=== PATIENT | male | born 1935 | race Caucasian/White ===

== ENCOUNTER 2020-06-14 14:33 | Emergency (ER) | payer MEDICARE, OTHER ==
[~2020-06-14] VITALS: Ht 165.1 cm; Wt 95.2 kg
[~2020-06-14 14:33] MED LIST: ASCO500; CLOP75; GABA300; GLUC500; HYDACE25S PR; HYDR1TAB94; LEVSOD50; METO50ER; PANT40; ZOLP10
[2020-06-14 15:22] LABS: BASOPHILS ABSOLUTE AUTO 0.02 K/mm3 (0.00-0.23); BASOPHILS PERCENT AUTO 0 % (0-2); EOSINOPHILS ABSOLUTE AUTO 0.24 K/mm3 (0.00-0.68); EOSINOPHILS PERCENT AUTO 4 % (0-6); Hematocrit 48.5 % (37.0-53.0); Hemoglobin 16.2 g/dL (13.5-17.5); IMMATURE GRAN ABSOLUTE AUTO 0.02 K/mm3 (0.00-0.10); IMMATURE GRAN PERCENT AUTO 0 % (0-1); LYMPHOCYTES PERCENT AUTO 25 % (21-46); MONOCYTES ABSOLUTE AUTO 0.56 K/mm3 (0.16-1.47); MONOCYTES PERCENT AUTO 9 % (4-13); Mean Corpuscular HGB 29.9 pg (26.0-34.0); Mean Corpuscular HGB Conc 33.4 g/dL (31.5-36.5); Mean Corpuscular Volume 90 fL (80-100); Mean Platelet Volume 9.9 fL (9.1-12.4); NEUTROPHILS ABSOLUTE AUTO 3.95 K/mm3 (1.96-9.15); NEUTROPHILS PERCENT AUTO 62 % (41-73); Platelet Count 237 K/mm3 (150-400); RDW Coefficient Variation 12.5 % (11.7-14.2); RDW Standard Deviation 41.5 fL (35.1-46.3); Red Blood Cell Count 5.42 M/mm3 (4.30-5.90); White Blood Cell Count 6.39 K/mm3 (4.00-11.30)
[2020-06-14 15:49] LABS: Alanine Aminotransfer (ALT/SGP 17 U/L (12-78); Albumin, Blood 3.7 g/dL (3.4-5.0); Albumin/Globulin Ratio 0.9 (0.8-1.8); Alk Phos 63 U/L (50-136); Anion Gap 7 mmol/L (6-16); Aspartate Aminotrans (AST/SGOT 26 U/L (12-37); Bilirubin, Total 0.9 mg/dL (0.1-1.0); Blood Urea Nitrogen 13 mg/dL (8-24); Bun/Creatinine Ratio 19.6 (12.0-20.0); CO2, Blood 25 mmol/L (21-32); Calcium, Blood 8.7 mg/dL (8.5-10.1); Chloride, Blood 109 mmol/L (98-108); Creatinine, Blood 0.66 mg/dL (0.60-1.20); Globulin, Blood 3.9 g/dL (2.2-4.0); Glomerular Filtration Rate >60 (60-); Glucose, Blood 118 mg/dL (70-99); Potassium, Blood 4.8 mmol/L (3.5-5.5); Sodium, Blood 141 mmol/L (136-145); Total Protein, Blood 7.6 g/dL (6.4-8.2); Troponin I <0.015 ng/mL (0.000-0.040)
== END 2020-06-14 17:45 | disposition home or self-care (01) ==
LOC: ER 14:33
PROVIDERS: Physician Assistant
DX: R07.9 Chest pain, unspecified (principal); Z79.02 Long term (current) use of antithrombotics/antiplatelets; Z79.899 Other long term (current) drug therapy; Z87.891 Personal history of nicotine dependence; Z88.2 Allergy status to sulfonamides; Z88.6 Allergy status to analgesic agent; Z88.8 Allergy status to other drugs, medicaments and biological substances
CPT/HCPCS: 36415; 71046; 80053; 84484; 85025; 93005; 93010; 99285-25

== ENCOUNTER 2021-06-09 02:35 | Emergency (ER) | payer MEDICARE, OTHER ==
[~2021-06-09] VITALS: Ht 165.1 cm; Wt 91.6 kg
[~2021-06-09 02:35] MED LIST changes: -CLOP75; -GABA300; -HYDR1TAB94; -LEVSOD50; -METO50ER; -PANT40; -ZOLP10
[2021-06-09 03:09] LABS: BASOPHILS ABSOLUTE AUTO 0.02 K/mm3 (0.00-0.23); BASOPHILS PERCENT AUTO 0 % (0-2); EOSINOPHILS ABSOLUTE AUTO 0.31 K/mm3 (0.00-0.68); EOSINOPHILS PERCENT AUTO 5 % (0-6); Hematocrit 49.5 % (37.0-53.0); IMMATURE GRAN ABSOLUTE AUTO 0.01 K/mm3 (0.00-0.10); IMMATURE GRAN PERCENT AUTO 0 % (0-1); LYMPHOCYTES ABSOLUTE AUTO 1.72 K/mm3 (0.84-5.20); LYMPHOCYTES PERCENT AUTO 26 % (21-46); MONOCYTES ABSOLUTE AUTO 0.55 K/mm3 (0.16-1.47); MONOCYTES PERCENT AUTO 8 % (4-13); Mean Corpuscular HGB Conc 32.3 g/dL (31.5-36.5); Mean Corpuscular Volume 93 fL (80-100); Mean Platelet Volume 9.3 fL (9.1-12.4); NEUTROPHILS ABSOLUTE AUTO 4.04 K/mm3 (1.96-9.15); NEUTROPHILS PERCENT AUTO 61 % (41-73); Platelet Count 195 K/mm3 (150-400); RDW Standard Deviation 44.8 fL (35.1-46.3); Red Blood Cell Count 5.34 M/mm3 (4.30-5.90); White Blood Cell Count 6.65 K/mm3 (4.00-11.30)
[2021-06-09 03:30] LABS: Alanine Aminotransfer (ALT/SGP 15 U/L (12-78); Albumin, Blood 3.6 g/dL (3.4-5.0); Alk Phos 61 U/L (50-136); Anion Gap 4 mmol/L (6-16); Aspartate Aminotrans (AST/SGOT 25 U/L (12-37); Blood Urea Nitrogen 19 mg/dL (8-24); Bun/Creatinine Ratio 22.1 (12.0-20.0); CO2, Blood 32 mmol/L (21-32); Calcium, Blood 8.9 mg/dL (8.5-10.1); Chloride, Blood 104 mmol/L (98-108); Creatinine, Blood 0.86 mg/dL (0.60-1.20); Globulin, Blood 3.7 g/dL (2.2-4.0); Glomerular Filtration Rate >60 (60-); Glucose, Blood 119 mg/dL (70-99); Potassium, Blood 4.3 mmol/L (3.5-5.5); Sodium, Blood 140 mmol/L (136-145); Total Protein, Blood 7.3 g/dL (6.4-8.2); Troponin I <0.015 ng/mL (0.000-0.040)
[2021-06-09 03:57] LABS: Influenza A, PCR NEGATIVE (NEGATIVE); Influenza B, PCR NEGATIVE (NEGATIVE); Resp Syncytial Virus, PCR NEGATIVE (NEGATIVE); SARS-Cov-2 (COVID-19) PCR, MMC NEGATIVE (NEGATIVE)
[2021-06-09] MEDS ORDERED: ACET325 PO (08:48)
[2021-06-09] MEDS ORDERED: CLOP75 PO (21:18)
[2021-06-09] MEDS ORDERED: AMLO5 PO (21:18)
[2021-06-09] MEDS ORDERED: METO50ER PO (21:18)
[2021-06-09] MEDS ORDERED: EUTHYROX50 MCG PO (21:19)
[2021-06-09] MEDS ORDERED: COMBIGAN 0.2%-0.5 ML RIGHTEYE (21:19)
[2021-06-09] MEDS ORDERED: ACULAR5 M1 BOTHEYES (21:20)
[2021-06-09] MEDS ORDERED: QUETIAPINE FUMA25 MG PO (21:20)
[2021-06-09] MEDS ORDERED: PANT40 PO (21:21)
[2021-06-09] MEDS ORDERED: HYDR1TAB94 PO (21:21)
[2021-06-09] MEDS ORDERED: Aspir 8181 MG PO (21:22)
[2021-06-09] MEDS ORDERED: ZOLOFT50 MG PO (21:22)
[2021-06-09] MEDS ORDERED: ZOLP10 PO (21:23)
[2021-06-09] MEDS ORDERED: GABA100 PO (21:24)
== END 2021-06-09 10:35 | disposition home or self-care (01) ==
LOC: ER 02:35
PROVIDERS: Emergency Medicine
DX: R07.89 Other chest pain (principal); Z88.8 Allergy status to other drugs, medicaments and biological substances; Z88.2 Allergy status to sulfonamides; Z88.1 Allergy status to other antibiotic agents; Z79.899 Other long term (current) drug therapy; Z79.82 Long term (current) use of aspirin; I25.10 Atherosclerotic heart disease of native coronary artery without angina pectoris; Z87.891 Personal history of nicotine dependence
CPT/HCPCS: 0241U; 36415; 71045; 80053; 83690; 84484; 85025; 93005; 93010; 99285-25; A9270; J7030

== ENCOUNTER 2021-06-09 17:43 | Inpatient (IN) | payer MEDICARE, OTHER ==
[~2021-06-09] VITALS: Ht 165.1 cm; Wt 89.1 kg
[~2021-06-09 17:43] MED LIST changes: +ACET325 PO
[2021-06-09 18:17] LABS: BASOPHILS ABSOLUTE AUTO 0.02 K/mm3 (0.00-0.23); BASOPHILS PERCENT AUTO 0 % (0-2); EOSINOPHILS ABSOLUTE AUTO 0.23 K/mm3 (0.00-0.68); EOSINOPHILS PERCENT AUTO 3 % (0-6); Hematocrit 49.2 % (37.0-53.0); Hemoglobin 16.1 g/dL (13.5-17.5); IMMATURE GRAN ABSOLUTE AUTO 0.02 K/mm3 (0.00-0.10); IMMATURE GRAN PERCENT AUTO 0 % (0-1); LYMPHOCYTES ABSOLUTE AUTO 1.21 K/mm3 (0.84-5.20); LYMPHOCYTES PERCENT AUTO 18 % (21-46); MONOCYTES ABSOLUTE AUTO 0.47 K/mm3 (0.16-1.47); MONOCYTES PERCENT AUTO 7 % (4-13); Mean Corpuscular HGB 30.3 pg (26.0-34.0); Mean Corpuscular HGB Conc 32.7 g/dL (31.5-36.5); Mean Corpuscular Volume 93 fL (80-100); Mean Platelet Volume 9.4 fL (9.1-12.4); NEUTROPHILS ABSOLUTE AUTO 4.85 K/mm3 (1.96-9.15); NEUTROPHILS PERCENT AUTO 71 % (41-73); Platelet Count 214 K/mm3 (150-400); RDW Standard Deviation 43.9 fL (35.1-46.3); Red Blood Cell Count 5.32 M/mm3 (4.30-5.90)
[2021-06-09 18:58] LABS: Troponin I 0.215 ng/mL (0.000-0.040)
[2021-06-09 18:59] LABS: Alanine Aminotransfer (ALT/SGP 19 U/L (12-78); Albumin, Blood 3.6 g/dL (3.4-5.0); Alk Phos 66 U/L (50-136); Anion Gap 0 mmol/L (6-16); Aspartate Aminotrans (AST/SGOT 22 U/L (12-37); Bilirubin, Total 0.7 mg/dL (0.1-1.0); Blood Urea Nitrogen 18 mg/dL (8-24); Bun/Creatinine Ratio 22.3 (12.0-20.0); CO2, Blood 29 mmol/L (21-32); Calcium, Blood 8.7 mg/dL (8.5-10.1); Chloride, Blood 107 mmol/L (98-108); Creatinine, Blood 0.81 mg/dL (0.60-1.20); Globulin, Blood 3.7 g/dL (2.2-4.0); Glomerular Filtration Rate >60 (60-); Glucose, Blood 141 mg/dL (70-99); Potassium, Blood 4.4 mmol/L (3.5-5.5); Sodium, Blood 136 mmol/L (136-145); Total Protein, Blood 7.3 g/dL (6.4-8.2)
[2021-06-09 21:00] LABS: Anti-Xa UFH, PHA Monitoring <0.10 IU/mL; International Normalized Ratio 1.04; Prothrombin Time Results 10.9 Sec (9.7-11.5)
[2021-06-09] MEDS ORDERED: METO50ER PO (21:18)
[2021-06-09] MEDS ORDERED: AMLO5 PO (21:18)
[2021-06-09] MEDS ORDERED: CLOP75 PO (21:18)
[2021-06-09] MEDS ORDERED: EUTHYROX50 MCG PO (21:19)
[2021-06-09] MEDS ORDERED: COMBIGAN 0.2%-0.5 ML RIGHTEYE (21:19)
[2021-06-09] MEDS ORDERED: ACULAR5 M1 BOTHEYES (21:20)
[2021-06-09] MEDS ORDERED: QUETIAPINE FUMA25 MG PO (21:20)
[2021-06-09] MEDS ORDERED: HYDR1TAB94 PO (21:21)
[2021-06-09] MEDS ORDERED: PANT40 PO (21:21)
[2021-06-09] MEDS ORDERED: Aspir 8181 MG PO (21:22)
[2021-06-09] MEDS ORDERED: ZOLOFT50 MG PO (21:22)
[2021-06-09] MEDS ORDERED: ZOLP10 PO (21:23)
[2021-06-09] MEDS ORDERED: GABA100 PO (21:24)
[2021-06-09 21:35] LABS: CHOL/HDL RATIO 7.2; Cholesterol 222 mg/dL (50-200); HDL Cholesterol 31 mg/dL (>39); LDL/HDL RATIO Unable to Calculate; Low Density Lipoprotein Chol Unable to Calculate mg/dL (0-110); Triglycerides 469 mg/dL (30-160); Very Low Density Lipoprot Chol Unable to Calculate mg/dL (6-32)
[2021-06-09 21:48] LABS: LDL Direct Measurement 135 mg/dL (0-130)
[2021-06-10 05:58] LABS: BASOPHILS ABSOLUTE AUTO 0.03 K/mm3 (0.00-0.23); BASOPHILS PERCENT AUTO 1 % (0-2); EOSINOPHILS PERCENT AUTO 5 % (0-6); Hematocrit 47.4 % (37.0-53.0); Hemoglobin 15.6 g/dL (13.5-17.5); IMMATURE GRAN ABSOLUTE AUTO 0.01 K/mm3 (0.00-0.10); IMMATURE GRAN PERCENT AUTO 0 % (0-1); LYMPHOCYTES ABSOLUTE AUTO 1.92 K/mm3 (0.84-5.20); LYMPHOCYTES PERCENT AUTO 30 % (21-46); MONOCYTES ABSOLUTE AUTO 0.51 K/mm3 (0.16-1.47); MONOCYTES PERCENT AUTO 8 % (4-13); Mean Corpuscular HGB 30.4 pg (26.0-34.0); Mean Corpuscular HGB Conc 32.9 g/dL (31.5-36.5); Mean Corpuscular Volume 92 fL (80-100); Mean Platelet Volume 9.1 fL (9.1-12.4); NEUTROPHILS ABSOLUTE AUTO 3.73 K/mm3 (1.96-9.15); NEUTROPHILS PERCENT AUTO 57 % (41-73); Platelet Count 176 K/mm3 (150-400); RDW Coefficient Variation 12.8 % (11.7-14.2); RDW Standard Deviation 43.7 fL (35.1-46.3); Red Blood Cell Count 5.14 M/mm3 (4.30-5.90)
[2021-06-10 06:23] LABS: Alanine Aminotransfer (ALT/SGP 14 U/L (12-78); Albumin, Blood 3.3 g/dL (3.4-5.0); Albumin/Globulin Ratio 0.9 (0.8-1.8); Alk Phos 56 U/L (50-136); Anion Gap 7 mmol/L (6-16); Aspartate Aminotrans (AST/SGOT 23 U/L (12-37); Bilirubin, Total 0.7 mg/dL (0.1-1.0); Blood Urea Nitrogen 16 mg/dL (8-24); CO2, Blood 29 mmol/L (21-32); Calcium, Blood 8.6 mg/dL (8.5-10.1); Chloride, Blood 107 mmol/L (98-108); Globulin, Blood 3.5 g/dL (2.2-4.0); Glomerular Filtration Rate >60 (60-); Glucose, Blood 105 mg/dL (70-99); Potassium, Blood 4.1 mmol/L (3.5-5.5); Sodium, Blood 143 mmol/L (136-145); Total Protein, Blood 6.8 g/dL (6.4-8.2)
--- NOTE | 2021-06-10 07:21 | NUR ---
SHIFT SUMMARY PT ALERT AND ORIENTED X4. HR SR 70'S. BP STABLE. ON RA SATS OVER 99%. PT HAS BEEN NPO SINCE MIDNIGHT. SEEN BY DR MAY THIS AM, PT TO GO TO ARCHITECT[facility] EXAMINER. TROPS TRENDING UPWARDS. C/O CP 9/10 AT MIDNIGHT. PT INDEPENDENT FOR VOIDING AND ADLS. HEP GTT INFUSING LEFT A/C. IN BED RESTING WITH CALL ALARM AT SIDE
--- NOTE | 2021-06-10 08:02 | NUR ---
CARE ASSUMPTION PATIENT ALERT AND ORIENTATED X4. PATIENT VSS. PATIENT WILL BE GOING TO THE GRAVE CLEANER LATER TODAY, SO REMAINS NPO FOR PROCEDURE. PATIENT REPORTS NO CHEST PAIN OR PRESSURE THIS AM. PATIENT REPORTS NO SHORTNESS OF BREATH OR NUMBNESS OR TINGLING. PATIENT IS HARD OF HEARING. HERPAIN INFUSING AT 15U/KG/HR. ULTRASOUND IS CURRENTLY IN ROOM DOING AN ULTRASOUND ON PATIENT HEART. CALL LIGHT IS WITHIN REACH AND BED IN LOWEST POSITION. WILL CONTINUE TO MONITOR AND PROVIDE CARE.
--- NOTE | 2021-06-10 10:11 | NUR ---
UPDATE PATIENT LEFT FOR CATTERY OPERATOR AT APROX 1009 VIA PCU BED.
--- NOTE | 2021-06-10 13:10 | NUR ---
PATIENT BACK FROM CATH PATIENT ARRIVED AT 1233 FROM TRAINING ADMINISTRATOR. PER REPORT FROM TRAINING ADMINISTRATOR RN,POST PROCEDURE PATIENT HAD CHEST PAIN AND RECEIVED 1 NITRO SUBLINGUAL AND THEN NITRO PASTE APPLIED. THIS RN INFORMED THEM OF HIS BP DROPPING WHEN HE RECEIVED NITRO IN THE EMERGENCY ROOM. NITRO PASTE REMOVED AND A BOLUS OF FLUID IS STARTED. MD BENTLEY INTO SEE PATIENT DUE TO SOFT BP. PATIENT IS TALKING AND DOESNT HAVE ANY ISSUES WITH SOFT BP. PATIENT RECEIVED SODA WELL. PATIENT BP HAVE IMPROVED SINCE ARRIVAL AND THIS RN WILL CONTINUE TO MONITOR AND PROVIDE CARE. PATIENT HAS ACCESS SITE AT RIGHT RADIAL WITH A TR BAND IN PLACE WITH 19 CC OF AIR. AND HAS A RIGHT FEMORAL ACCESS SITE WITH A ANGIO SEAL IN PLACE. BOTH SISTES HAVE NO HEMATOMA, BLEEDING, SWELLING, OR PAIN. WILL CONTINUE TO MONITOR AND PROVIDE CARE
--- NOTE | 2021-06-10 17:41 | NUR ---
SHIFT SUMMARY PATIENT IS A/OX4. PATIENT TR BAND HAS BEEN FULLY DEFLATED AT 1735 AT THE RIGHT RADIAL SITE. THERE IS A MINIMAL OOZ OF BLOOD AT THE SITE. TR BAND IS STILL IN PLACE AND WILL REMAIN FOR AN HOUR POST DEFLATION PER MD ORDERS. PATIENT NEEDS FREQUENT REMINDERS TO NOT USE HIS RIGHT ARM OR RIGHT LEG. THIS RN HAS PROVIDED EDUCATION ON THE IMPORTANCE OF NOT USUING THOSE EXTREMITIES WHILE RECOVERING. VSS. SPO2 >90% ON 2L NC, THIS RN TRIED TO REMOVED THE NC, BUT PATIENT BEGAN TO DESAT INTO 80S AND STAYED AT 85, SO THIS RN REAPPLIED THE OXYGEN. RIGHT FEMORAL SITE HAS NO HEMATOMA, BLEEDING, OR TENDERNESS. CALL LIGHT WITHIN REACH. WILL CONTINUE TO MONITOR AND PROVIDE CARE UNTIL NEXT SHIFT ARRIVES.
[2021-06-11 05:17] LABS: BASOPHILS ABSOLUTE AUTO 0.01 K/mm3 (0.00-0.23); BASOPHILS PERCENT AUTO 0 % (0-2); EOSINOPHILS ABSOLUTE AUTO 0.17 K/mm3 (0.00-0.68); EOSINOPHILS PERCENT AUTO 3 % (0-6); Hematocrit 45.8 % (37.0-53.0); Hemoglobin 14.3 g/dL (13.5-17.5); IMMATURE GRAN ABSOLUTE AUTO 0.01 K/mm3 (0.00-0.10); IMMATURE GRAN PERCENT AUTO 0 % (0-1); LYMPHOCYTES ABSOLUTE AUTO 1.27 K/mm3 (0.84-5.20); LYMPHOCYTES PERCENT AUTO 18 % (21-46); MONOCYTES ABSOLUTE AUTO 0.64 K/mm3 (0.16-1.47); MONOCYTES PERCENT AUTO 9 % (4-13); Mean Corpuscular HGB 29.9 pg (26.0-34.0); Mean Corpuscular HGB Conc 31.2 g/dL (31.5-36.5); Mean Corpuscular Volume 96 fL (80-100); Mean Platelet Volume 9.6 fL (9.1-12.4); NEUTROPHILS ABSOLUTE AUTO 4.81 K/mm3 (1.96-9.15); NEUTROPHILS PERCENT AUTO 70 % (41-73); Platelet Count 195 K/mm3 (150-400); RDW Coefficient Variation 13.1 % (11.7-14.2); RDW Standard Deviation 46.5 fL (35.1-46.3); Red Blood Cell Count 4.79 M/mm3 (4.30-5.90); White Blood Cell Count 6.91 K/mm3 (4.00-11.30)
--- NOTE | 2021-06-11 05:23 | NUR ---
SHIFT SUMMARY NO ACUTE CHANGES THIS SHIFT. PT AXO BUT FORGETFUL AND RARELY USES CALL LIGHT, BED ALARM ON. PT IN SR, DENIES CP/PRESSURE. HOTN AT TIMES BUT RESOLVES W/OUT INTERVENTION. OTHERWISE, PT RESTING IN ROOM. TR BAND FULLY RECOVERED WITH ARMBOARD IN PLACE. G ROIN SITE W/OUT NEW BLEEDING/HEMATOMA.
[2021-06-11 06:28] LABS: Anion Gap 6 mmol/L (6-16); Blood Urea Nitrogen 16 mg/dL (8-24); Bun/Creatinine Ratio 17.7 (12.0-20.0); CO2, Blood 29 mmol/L (21-32); Calcium, Blood 8.7 mg/dL (8.5-10.1); Chloride, Blood 104 mmol/L (98-108); Glomerular Filtration Rate >60 (60-); Glucose, Blood 104 mg/dL (70-99); Potassium, Blood 4.2 mmol/L (3.5-5.5); Sodium, Blood 139 mmol/L (136-145)
--- NOTE | 2021-06-11 09:26 | NUR ---
CARE ASSUMPTION: PATIENT ALERT AND ORIENTED. VERY HARD OF HEARING. PERRLA. DENIES NUMBNESS/TINGLING. ABLE TO STAND AND USE URINAL. CLAIMS TO USE WALKER AT HOME. WEAK UPON STANDING. ON 1L NASAL CANNULA THIS AM POST ANGIO. SATING 92-93%. WILL TITRATE ABLE. COMPLAINS OF HAVING PHLEM. TELE SHOWING SINUS RHYTHM WITH HR 80'S. BP STABLE. NO SIGNS OF EDEMA. DENIES CHEST PAIN/PRESSURE. POST ANGIO 06/10 WITH BOTH RIGHT RADIAL AND GROIN SITES. SITES WNL. REMAIN SOFT AND NON TENDER. MINIMAL BRUISING. TEGADERMS IN PLACE AND ARM BOARD TO RIGHT RADIAL. NS INFUSING AT 50ML/HR. TOLERATING PO DIET. TAKING PILLS WHOLE WITH WATER. DENIES ABDOMINAL PAIN/NAUSEA. SHANNAN WILKS AND MC IN TO CHECK ON PATIENT THIS AM. PT AND OT ORDERED. PATIENT FORGETFUL AT TIMES. NOT USING CALL LIGHT. BED ALARM ON FOR SAFETY. WILL CONTINUE TO [facility].
--- NOTE | 2021-06-11 11:22 | NUR ---
UPDATE: MISBAH CALLED TO UPDATE PER PATIENT REQUEST. NO ANSWER MESSAGE LEFT WITH CALLBACK NUMBER. PHYSICAL THERAPY WORKING WITH PATIENT AT THIS TIME. PATIENT DECIDED TO STAY AND GET ANGIO DONE ON TUESDAY 06/13. WILL CALL TO UPDATE DR. BENTLEY. 1200 VITALS STABLE. PATIENT DENIES CHEST PAIN/PRESSURE.
--- NOTE | 2021-06-11 18:09 | NUR ---
SHIFT SUMMARY: NO ACUTE CHANGES. SPOKE WITH ON PHONE AND GAVE UPDATE WITH PATIENT CONSENT. NO CHANGES IN TELE. REMAINS ON 1 L NASAL CANNULA. RIGHT RADIAL AND RIGHT GROIN SITE WNL. BRUISING PRESENT BUT BOTH SITES REMAINS SOFT AND NONTENDER. UP WITH WALKER AND INTO RECLINER WITH PHYSICAL THERAPY THIS AFTERNOON. PATIENT EATING DINNER AT THIS TIME. DENIES CHEST PAIN/PRESSURE. ALL SHIFT. TAKING PILLS WHOLE WITH WATER. VITAL SIGNS REMAINS STABLE. PLAN FOR ANGIO ON 06/13. DR. BENTLEY IN TO DISCUSS PLAN WITH PATIENT. SCD'S IN PLACE. NS RUNNING AT 50 ML/HR. WILL CONTINUE TO MONITOR AND REPORT OFF.
--- NOTE | 2021-06-12 04:31 | NUR ---
SHIFT SNO ACUTE CHANGES THIS SHIFT. VSS. PT AXO. LESS IMPULSIVE THIS SHIFT VS LAST NOC SHIFT. HAS USED CALL LIGHT A COUPLE TIMES. CONTINUES TO DENY CP/PRESSURE. POST ANGIO SITES TO WRIST AND GROIN WNL. LUNG SOUNDS UNCHANGED, CLEAR. PT VOIDING IN URINAL. NS CONTINUES TO INFUSE PER EMAR. OTHERWISE, PT REWSTING IN BED. BED ALARM ON.
--- NOTE | 2021-06-12 06:42 | NUR ---
SHIFT SUMMARY NO ACUTE CHANGES THIS SHIFT. VSS. PT AXO. LESS IMPULSIVE THIS SHIFT VS LAST NOC SHIFT. HAS USED CALL LIGHT A COUPLE TIMES. CONTINUES TO DENY CP/PRESSURE. POST ANGIO SITES TO WRIST AND GROIN WNL. LUNG SOUNDS UNCHANGED, CLEAR. PT VOIDING IN URINAL. NS CONTINUES TO INFUSE PER EMAR. OTHERWISE, PT REWSTING IN BED. BED ALARM ON.
--- NOTE | 2021-06-12 08:18 | NUR ---
PATIENT ALERT AND ORIENTED X4. HARD OF HEARING. NEURO WNL. DENIES NUMBNESS/TINGLING. ON 1 L NASAL CANNULA SATING MID 90'S. WILL TITRATE ABLE. TELE SHOWING SINUS RHYTHM WITH HR 70-80'S THIS AM. DENIES CHEST PAIN/PRESSURE. BP SLIGHTLY ELEVATED. MORNING PO METOPROLOL GIVEN. SCD'S IN PLACE. RIGHT RADIAL AND RIGHT GROIN SITES POST ANGIO WNL. BRUISING AND SLIGHT TENDERNESS TO BOTH SPOTS. TEGADERMS IN PLACE. DENIES ABDOMINAL PAIN/NAUSEA. TOLERATING PO DIET. DRINKING WATER. NS RUNNING AT 50 ML/HR. PLAN FOR ANGIO TOMORROW. NOT USING CALL LIGHT. BED ALARM IN PLACE. EATING BREAKFAST AT THIS TIME. TAKING PILLS WHOLE WITH WATER. DENIES NEEDS. WILL CONTINUE TO MONITOR.
--- NOTE | 2021-06-12 18:02 | NUR ---
SHIFT SUMMARY: NO ACUTE CHANGES. SEE PREVIOUS NOTE. DENIES CHEST PAIN/PRESSURE. VITAL SIGNS REMAIN STABLE. ON ROOM AIR SATING MID 90S'. NO CHANGES IN TELE. RIGHT RADIAL AND GROIN SITE WNL. UP TO RECLINER FOR MEALS. NS INFUSING AT 50 ML/HR. CALL LIGHT IN REACH. DENIES NEEDS AT THIS TIME. CALL LIGHT IN REACH. WILL CONTINUE TO MONITOR AND REPORT OFF.
--- NOTE | 2021-06-13 05:57 | NUR ---
SHIFT SUMMARY NO ACUTE CHANGES THIS SHIFT. VSS. PT AXO. NEW IV PLACED IN FOREARM FOR IV NS INFUSION. PT VOIDING T/O NIGHT, DROPPED URINAL ON BED/SELF AND PT BEDDING CHANGED AND PT CLEANED MULTIPLE TIMES. PT NPO @0000 FOR ANGIO. OTHERWISE, PT RESTING COMFORTABLY. DENIES CP/PRESSURE. BED ALARM IN PLACE. BED IN LOW POSITION.
[2021-06-13 07:52] LABS: BASOPHILS ABSOLUTE AUTO 0.01 K/mm3 (0.00-0.23); BASOPHILS PERCENT AUTO 0 % (0-2); EOSINOPHILS ABSOLUTE AUTO 0.31 K/mm3 (0.00-0.68); EOSINOPHILS PERCENT AUTO 5 % (0-6); Hematocrit 45.7 % (37.0-53.0); Hemoglobin 15.1 g/dL (13.5-17.5); IMMATURE GRAN ABSOLUTE AUTO 0.01 K/mm3 (0.00-0.10); IMMATURE GRAN PERCENT AUTO 0 % (0-1); LYMPHOCYTES ABSOLUTE AUTO 1.31 K/mm3 (0.84-5.20); LYMPHOCYTES PERCENT AUTO 21 % (21-46); MONOCYTES ABSOLUTE AUTO 0.58 K/mm3 (0.16-1.47); MONOCYTES PERCENT AUTO 9 % (4-13); Mean Corpuscular HGB 30.4 pg (26.0-34.0); Mean Corpuscular Volume 92 fL (80-100); Mean Platelet Volume 9.4 fL (9.1-12.4); NEUTROPHILS ABSOLUTE AUTO 4.04 K/mm3 (1.96-9.15); NEUTROPHILS PERCENT AUTO 64 % (41-73); Platelet Count 177 K/mm3 (150-400); RDW Coefficient Variation 12.7 % (11.7-14.2); RDW Standard Deviation 43.3 fL (35.1-46.3); Red Blood Cell Count 4.96 M/mm3 (4.30-5.90); White Blood Cell Count 6.26 K/mm3 (4.00-11.30)
[2021-06-13 07:54] LABS: Anion Gap 4 mmol/L (6-16); Blood Urea Nitrogen 14 mg/dL (8-24); Bun/Creatinine Ratio 19.1 (12.0-20.0); CO2, Blood 31 mmol/L (21-32); Chloride, Blood 104 mmol/L (98-108); Creatinine, Blood 0.73 mg/dL (0.60-1.20); Glomerular Filtration Rate >60 (60-); Glucose, Blood 106 mg/dL (70-99); Potassium, Blood 4.1 mmol/L (3.5-5.5); Sodium, Blood 139 mmol/L (136-145)
--- NOTE | 2021-06-13 12:20 | NUR ---
PATIENT HAD AN EPISDE F CHEST PAIN THAT HAS ALREADY RESOLVED. STUDENT NURSE INFORMED RN, AND I EVALUATED, ELOY ENDORSES ANXIETY ABOUT UPCOMING PROCEDURE, NO CONCERN AT THIS TIME WILL CONTINUE TO MONITOR.
--- NOTE | 2021-06-13 17:12 | NUR ---
RETURN FROM CATH CENTER: RECIEVED PATIENT AT 1650, PATIENT DID NOT HAVE A STENT PLACED. THEY ACCESSED THE LEFT GROIN/FEMORAL AND DURING PROCEDURE THEY HAD TOSWITCH ROOMS DUE TO COMPUTERS FAILURE, THEN A HEMATOMA DEVELOPED BETWEEN THE SWITCHING FROM ROOMS. ANGIO SEAL AND FEMSTOP PLACED. 65 ON RETURN FROM GORE MAKER. VERSED 3 FENT 75 6500 HEP 125 FLUIDS AND THE REST HANGING OF A [address] MARQUEZ AT BEDSIDE 1 HOUR RELEASE FEMSTOP REMAINING AIR, US BILATERAL FEMORAL GROIN, CAN BE DONE AFTER FEMSTOP REMOVED. PLAN OF CARE WILL BE DC TOMORROW IF US CLEAR, AND FOLLOW UP OUTPATIENT. NO SPECIFIC TIME DESIGNATED AT THIS TIME PATIENT AWARE OF PLAN, WILL FOLLOW VITAL SIGN MONITORING PER
--- NOTE | 2021-06-13 18:52 | NUR ---
END OF SHIFT SUMMARY: PATIENT WAS NPO SINCE MIDNIGHT, DUE TO PCI TODAY. LEFT FOR THE PONY WORKER THIS AFTERNOON, TO WHICH HIS LEFT GROIN SITE STARTED TO HAVE A HEMATOMA, PLEASE SEE NURSE NOTE. NO STENTS WERE PLACED, US OF THE BILAT GROIN HAS BEEN PLACED BY DR. VINCENT, AWAITING IMAGING TO PREFORM. SR BP SLIGHTLY HYPERTENSIVE. DENIES CHEST PAIN DID HAVE A SINGLE SELF RESOLVING INCIDENT WHICH WAS DUE TO ANXIETY. BM TODAY.FLUIDS RAN AFTER PCI 1L. SANDBAG AT SITE OF LEFT GROIN FOR A VERY VERY MINIMAL SITE OOZING. PLAN FOR PATIENT TO DC TOMORROW IF US CLEAR PER DR. VINCENT AND FOLLOW UP OUTPATINET FOR PROCEDURE. NITRO WAS REPORTED TO TANK BP WILL INFORM NIGHT NURSE.
--- NOTE | 2021-06-14 06:30 | NUR ---
SHIFT SUMMARY: PATIENT DENIES CHEST PAIN AND SOB. ANGIO SITES WNL. PATIENT NONCOMPLIANT WITH KEEPING LEG FLAT, FREQUENT MONITORING OF GROIN SITE - NO BLEEDING. HEMATOMA ON LEFT THIGH HAS BEEN OUTLINED WITH SKIN MARKER. PATIENT SUNDOWNED, BECAME AGITATED AND MILDLY AGGRESSIVE FROM [phone]. STAFF LIMITED INTERACTIONS PROVIDING UNINTERRUPTED REST. PATIENT WOKE ON HIS OWN AT 0600 AND TRIED TO GET OUT OF BED. PATIENT WAS DISORIENTED AND TOLD THIS RN "I THINK YOU'RE MAKING THAT UP" WHEN SHE EXPLAINED WHY HE WAS IN THE HOSPITAL AND NEEDED TO STAY IN BED. HE DID LAY BACK DOWN AND HAS REMAINED IN BED. BED ALARM IS SET AND CALL LIGHT WITHIN REACH. WILL CONTINUE TO MONITOR AND REPORT TO ONCOMING RN.
[2021-06-14] MEDS ORDERED: Prinivil10 MG PO (12:48)
[2021-06-14] MEDS ORDERED: Q-Tussin100 MG/5 M PO (12:48)
[2021-06-14] MEDS ORDERED: ROSU5 PO (12:49)
--- NOTE | 2021-06-14 14:11 | NUR ---
Met pt. in bed resting and he is doing fine may go home today or eddie ,prayed for him
--- NOTE | 2021-06-14 14:30 | NUR ---
DISCHARGE SUMMARY: PATINET WAS DISCHARGE WITH THE PLAN OF FOLLOWING UP WITH PRIMARY CARE AND CARDIOLOGY IN 1-2 WEEKS, DISCHARGE INSTRUCTIONS WERE COMPLETELY UNDERSTOOD BY BOTH PATIENT AND . IV'S WERE DC, WITH NO ISSUES. ALL PATINET BELINGINGS WERE COLLECTED. PATIENT DENIED ANY CHEST PAIN, AND WAS VERY EAGER TO GET HOME. PATIENT GROIN SITES WERE RECOVERED, RR RECOVERED. ELOY WAS INCREASING IN AMOUNT OF MOVEMENT, WORKED WITH OT TODAY. FREQUENT URINATION, WITH AN AVERAGE OF 100-200 OUT. NO FURTHER QUESTIONS COMMENTS OR CONCERNS.
== END 2021-06-14 14:50 | disposition home or self-care (01) | DRG 246 ==
LOC: ER 17:43 → PCU 21:04
PROVIDERS: Family Medicine; Physician Assistant; Student in an Organized Health Care Education/Training Program; ADMIT Internal Medicine
PROC: 027135Z Dilation of Coronary Artery, Two Arteries with Two Drug-eluting Intraluminal Devices, Percutaneous Approach (ICD-10-PCS; principal; 2021-06-10)
PROC: B2111ZZ Fluoroscopy of Multiple Coronary Arteries using Low Osmolar Contrast (ICD-10-PCS; 2021-06-10)
PROC: B41GYZZ Fluoroscopy of Left Lower Extremity Arteries using Other Contrast (ICD-10-PCS; 2021-06-13)
DX: I21.4 Non-ST elevation (NSTEMI) myocardial infarction (principal); I50.21 Acute systolic (congestive) heart failure; L76.32 Postprocedural hematoma of skin and subcutaneous tissue following other procedure; I11.0 Hypertensive heart disease with heart failure; E03.9 Hypothyroidism, unspecified; I25.10 Atherosclerotic heart disease of native coronary artery without angina pectoris; I10 Essential (primary) hypertension; K21.9 Gastro-esophageal reflux disease without esophagitis; G47.00 Insomnia, unspecified; Z95.5 Presence of coronary angioplasty implant and graft; Z88.2 Allergy status to sulfonamides; Z88.8 Allergy status to other drugs, medicaments and biological substances; Z09 Encounter for follow-up examination after completed treatment for conditions other than malignant neoplasm; Z86.73 Personal history of transient ischemic attack (TIA), and cerebral infarction without residual deficits; Z90.49 Acquired absence of other specified parts of digestive tract; Z98.890 Other specified postprocedural states; Z20.822 Contact with and (suspected) exposure to COVID-19; G31.84 Mild cognitive impairment of uncertain or unknown etiology; Z53.29 Procedure and treatment not carried out because of patient's decision for other reasons
CPT/HCPCS: 36415; 76937; 80048; 80053; 80061; 83721; 84484; 85025; 85347; 85520; 85610; 92920; 93005; 93010; 93306; 93454; 93926; 96365; 96375; 96376; 97110; 97116; 97162; 97165; 97530; 97535; 99152; 99153; 99284-25; A9270; C1725; C1760; C1769; C1874; C1887; C1894; C9600; C9601; J0360; J1644; J2250; J2270; J2370; J2405; J3010; J7030; J7050; Q9967

== ENCOUNTER 2021-09-28 08:56 | Day surgery (SDC) | payer MEDICARE, OTHER ==
[~2021-09-28] VITALS: Ht 165.1 cm; Wt 92.5 kg
[~2021-09-28 08:56] MED LIST changes: +ACULAR5 M1 BOTHEYES; +AMLO5 PO; +Acetaminophen650 M1 PO; +Aspir 8181 MG PO; +CLOP75 PO; +COMBIGAN 0.2%-0.5 ML RIGHTEYE; +EUTHYROX50 MCG PO; +GABA100 PO; +GUAI600T33 PO; +HYDR1TAB94 PO; +METO50ER PO; +PANT40 PO; +PHARBEDRYL PO; +Prinivil10 MG PO; +Q-Tussin100 MG/5 M PO; +QUETIAPINE FUMA25 MG PO; +ROSU5 PO; +ZOLOFT50 MG PO; +ZOLP10 PO
--- NOTE | 2021-09-28 09:19 | NUR ---
09/28/21 0919 Linda Nair TETRACAINE: 0908 PLEDGET: 0910 BOTH PLACED IN RIGHT EYE BY [facility].MES
== END 2021-09-28 11:00 | disposition home or self-care (01) ==
LOC: ORSCSDS 08:56
PROVIDERS: Ophthalmology
PROC: 08RJ3JZ Replacement of Right Lens with Synthetic Substitute, Percutaneous Approach (ICD-10-PCS; principal; 2021-09-28 10:00)
DX: H25.11 Age-related nuclear cataract, right eye (principal); I10 Essential (primary) hypertension; K21.9 Gastro-esophageal reflux disease without esophagitis; I25.10 Atherosclerotic heart disease of native coronary artery without angina pectoris; G47.33 Obstructive sleep apnea (adult) (pediatric); F03.90 Unspecified dementia, unspecified severity, without behavioral disturbance, psychotic disturbance, mood disturbance, and anxiety; E66.9 Obesity, unspecified; Z68.33 Body mass index [BMI] 33.0-33.9, adult; E03.9 Hypothyroidism, unspecified; Z79.01 Long term (current) use of anticoagulants; Z79.82 Long term (current) use of aspirin; Z79.899 Other long term (current) drug therapy
CPT/HCPCS: J2001; J2250; J3010; J3301; J7040; V2632

== ENCOUNTER 2023-10-28 14:18 | Emergency (ER) | payer MEDICARE, OTHER ==
[~2023-10-28] VITALS: Ht 170.2 cm; Wt 72.6 kg
[2023-10-28 15:01] LABS: BASOPHILS ABSOLUTE AUTO 0.02 K/mm3 (0.00-0.23); BASOPHILS PERCENT AUTO 0 % (0-2); EOSINOPHILS ABSOLUTE AUTO 0.26 K/mm3 (0.00-0.68); EOSINOPHILS PERCENT AUTO 5 % (0-6); Hematocrit 48.6 % (37.0-53.0); Hemoglobin 15.4 g/dL (13.5-17.5); IMMATURE GRAN ABSOLUTE AUTO 0.01 K/mm3 (0.00-0.10); IMMATURE GRAN PERCENT AUTO 0 % (0-1); LYMPHOCYTES ABSOLUTE AUTO 1.43 K/mm3 (0.84-5.20); LYMPHOCYTES PERCENT AUTO 26 % (21-46); MONOCYTES ABSOLUTE AUTO 0.52 K/mm3 (0.16-1.47); MONOCYTES PERCENT AUTO 9 % (4-13); Mean Corpuscular HGB 30.8 pg (26.0-34.0); Mean Corpuscular HGB Conc 31.7 g/dL (31.5-36.5); Mean Corpuscular Volume 97 fL (80-100); Mean Platelet Volume 9.4 fL (9.1-12.4); NEUTROPHILS ABSOLUTE AUTO 3.31 K/mm3 (1.96-9.15); NEUTROPHILS PERCENT AUTO 60 % (41-73); Platelet Count 202 K/mm3 (150-400); RDW Coefficient Variation 13.2 % (11.7-14.2); RDW Standard Deviation 46.8 fL (35.1-46.3); White Blood Cell Count 5.55 K/mm3 (4.00-11.30)
[2023-10-28] MEDS ORDERED: NS 500 ML IV SCH (15:10)
[2023-10-28 15:17] LABS: Albumin, Blood 3.6 g/dL (3.4-5.0); Bilirubin, Total 0.6 mg/dL (0.1-1.0); Bun/Creatinine Ratio 19.8 (12.0-20.0); Calcium, Blood 8.7 mg/dL (8.5-10.1); Creatinine, Blood 0.96 mg/dL (0.60-1.20); Globulin, Blood 3.5 g/dL (2.2-4.0); Potassium, Blood 4.6 mmol/L (3.5-5.5); Total Protein, Blood 7.1 g/dL (6.4-8.2)
[2023-10-28] MEDS ORDERED: Crestor40 MG PO (15:32)
[2023-10-28 16:04] LABS: Influenza A, PCR NEGATIVE (NEGATIVE); Influenza B, PCR NEGATIVE (NEGATIVE); Resp Syncytial Virus, PCR NEGATIVE (NEGATIVE); SARS-Cov-2 (COVID-19) PCR, MMC NEGATIVE (NEGATIVE)
[2023-10-28 17:21] LABS: Source, Urine Clean Catch
[2023-10-28 17:32] LABS: Appearance, Urine Clear (Clear); Bilirubin, Urine Neg (Neg); Blood, Urine Neg (Neg); Color, Urine Yellow (P-Yellow); Glucose Qualitative, Urine Neg (Neg); Ketones, Urine Neg (Neg); Leukocyte Esterase, Urine Neg (Neg); Nitrite, Urine Neg (Neg); Protein, Urine 1+ (Neg); Specific Gravity, Urine 1.025 (1.003-1.022); Urobilinogen, Urine 1+ (Normal)
[2023-10-28 17:42] LABS: Digoxin (Lanoxin) 0.07 ug/mL (0.80-2.00)
[2023-10-28 18:30] VITALS: BP 144/92
== END 2023-10-28 19:15 | disposition home or self-care (01) ==
LOC: ER 14:18
PROVIDERS: Emergency Medicine; Nurse Practitioner
DX: E86.0 Dehydration (principal); R53.1 Weakness; Z87.891 Personal history of nicotine dependence; Z79.82 Long term (current) use of aspirin; Z79.02 Long term (current) use of antithrombotics/antiplatelets; Z79.899 Other long term (current) drug therapy; Z91.040 Latex allergy status; Z88.2 Allergy status to sulfonamides; Z88.6 Allergy status to analgesic agent; Z88.5 Allergy status to narcotic agent; Z88.8 Allergy status to other drugs, medicaments and biological substances
CPT/HCPCS: 0241U; 71046; 80053; 80162; 83880; 84443; 85025; 93005; 93010; 96360; 99285-25; J7030